=== PATIENT | female | born 1970 | race Caucasian/White ===

== ENCOUNTER 2023-05-27 15:38 | Emergency (ER) | payer BC, SELFPAY ==
[2023-05-27 15:42] VITALS: BP 173/107; PULSE 96; RESP 20; TEMP 36.9; O2SAT 99; BMI 36.4
--- NOTE | 2023-05-27 15:51 | XR_ITS ---
The [address] [address] Patient Name: LESLY BARTON MRN: [id number] date: 1970 Sex: F Assigned Patient Location: ER Current Patient Location: ER Accession/Order Number: [id number] Exam Date: 05/27/2023 16:00 Report Date: 05/27/2023 16:25 At the request of: SENG CLARK Procedure: XR sacrum coccyx min 2V EXAM: XR sacrum coccyx min 2V HISTORY: fall, coccyx pain COMPARISON: None. TECHNIQUE: 3 images of the sacrococcygeal FINDINGS: There is no acute fracture or dislocation. The soft tissue is unremarkable. XR/XR sacrum coccyx min 2V IMPRESSION: No acute fracture. Electronically authenticated by: VIOLETA ARREAGA Date: 05/27/2023 16:25
--- NOTE | 2023-05-27 16:22 | ED.FALL1 ---
HPI - Fall General Chief Complaint: Fall Stated Complaint: FALL Time Seen by Provider: 05/27/23 15:51 Source: patient Mode of arrival: walk-in Limitations: no limitations History of Present Illness HPI Narrative: About a week ago the patient tripped over her dog and fell back, landing hard onto her tailbone . She now presents complaining of continued pain to the area. No numbness, tingling or weakness. Related Data Home Medications Medication Instructions Recorded Confirmed diclofenac sodium 50 mg 50 mg PO BID 05/27/23 05/27/23 tablet,delayed release lisinopril 10 mg tablet 10 mg PO DAILY 05/27/23 05/27/23 Previous Rx's Medication Instructions Recorded nabumetone 750 mg tablet 750 mg PO BID PRN pain #20 tabs 05/27/23 Allergies Allergy/AdvReac Type Severity Reaction Status Date / Time No Known Drug Allergies Allergy Verified 05/27/23 15:46 PFSH PFSH Social History Smoking status: Light tobacco smoker Exam Narrative Exam Narrative: Nurses notes and vital signs reviewed and patient is not hypoxic. afebrile General: Well-appearing and in no apparent distress. Skin: Warm, dry, no pallor noted. No rash. Cardiovascular: normal peripheral perfusion. Respiratory: No accessory muscle use or respiratory distress. Back: No midline lumbar vertebral or sacral tenderness. coccyx tenderness without bruising or swelling. No abscess or other skin change. Musculoskeletal: normal ROM Neurological: A&O x4. No cranial nerve dysfunction observed. No truncal ataxia. Moves all extremities. Sensation intact. Psychiatric: Cooperative and interactive. Normal mood and affect. Constitutional Vital Signs, click to edit/add: Last Vital Signs Temp 98.5 F 05/27/23 15:42 Pulse 96 H 05/27/23 15:42 Resp 20 05/27/23 15:42 BP 173/107 H 05/27/23 15:42 Pulse Ox 99 05/27/23 15:42 O2 Del Method Room Air 05/27/23 15:42 Course Vital Signs Vital signs: Vital Signs Temperature 98.5 F 05/27/23 15:42 Pulse Rate 96 H 05/27/23 15:42 Respiratory Rate 20 05/27/23 15:42 Blood Pressure 173/107 H 05/27/23 15:42 Pulse Oximetry 99 05/27/23 15:42 Oxygen Delivery Method Room Air 05/27/23 15:42 Temperature 98.5 F 05/27/23 15:42 Pulse Rate 96 H 05/27/23 15:42 Respiratory Rate 20 05/27/23 15:42 Blood Pressure 173/107 H 05/27/23 15:42 Pulse Oximetry 99 05/27/23 15:42 Oxygen Delivery Method Room Air 05/27/23 15:42 MDM - Fall MDM Narrative Medical decision making narrative: x-rays of the coccyx obtained - no fracture identified. Patient informed of results and options for treatment discussed. the patient is discharged home with a prescription for Relafen.. Imaging Data xr coccyx: Radiologist's impression: Patient Name: LESLY BARTON MRN: [id number] date: 1970 Sex: F Assigned Patient Location: ER Current Patient Location: ER Accession/Order Number: [id number] Exam Date: 05/27/2023 16:00 Report Date: 05/27/2023 16:25 At the request of: SENG CLARK Procedure: XR sacrum coccyx min 2V EXAM: XR sacrum coccyx min 2V HISTORY: fall, coccyx pain COMPARISON: None. TECHNIQUE: 3 images of the sacrococcygeal FINDINGS: There is no acute fracture or dislocation. The soft tissue is unremarkable. IMPRESSION: No acute fracture. Electronically authenticated by: VIOLETA ARREAGA Date: 05/27/2023 16:25 Discharge Plan Discharge Chief Complaint: Fall Clinical Impression: Coccyx contusion Patient Disposition: Home, Self-Care Time of Disposition Decision: 16:39 Prescriptions / Home Meds: New nabumetone 750 mg tablet 750 mg PO BID PRN (Reason: pain) Qty: 20 0RF No Action lisinopril 10 mg tablet 10 mg PO DAILY diclofenac sodium 50 mg tablet,delayed release (DR/EC) 50 mg PO BID Instructions: Coccyx Injury (ED) Stand Alone Forms: Portal Instructions Referrals: NETO MARK [Primary Care Provider] - 1 week
== END 2023-05-27 16:54 | disposition home or self-care (01) ==
PROVIDERS: Emergency Provider Emergency Medicine; PCP Family Medicine
DX: S30.0XXA Contusion of lower back and pelvis, initial encounter (principal); W01.0XXA Fall on same level from slipping, tripping and stumbling without subsequent striking against object, initial encounter; Z79.899 Other long term (current) drug therapy; F17.210 Nicotine dependence, cigarettes, uncomplicated
CPT/HCPCS: 72220; 99283